=== PATIENT | female | born 1955 ===

== ENCOUNTER 2022-01-18 05:57 | Observation (INO) ==
[2022-01-18] MEDS ORDERED: Buffered Lidocaine 1% SYRIN 1 ml INTRADERM ONE ×2 (06:00→07:15)
[2022-01-18] MEDS ORDERED: Lactated Ringers 1000 ml BAG 1,000 ML IV SCH (06:00)
[2022-01-18] MEDS ORDERED: Dexamethasone IV 4 MG/ML VIAL 1 ml VIAL ONE ×2 (06:20→07:04)
[2022-01-18] MEDS ORDERED: ceFAZolin 2 GM PREMIX 2 GM/50 ML BAG ONE (06:20)
[2022-01-18] MEDS ORDERED: Ondansetron 4 mg VIAL 2 MG/ML 2 ml VIAL ONE ×2 (06:20→07:04)
[2022-01-18] MEDS ORDERED: Heparin 5000 UNITS/ML 1 mL VIAL ONE (06:20)
[2022-01-18] MEDS ORDERED: Scopolamine 1 mg/72hr PATCH ONE (06:20)
[2022-01-18] MEDS ORDERED: ceFAZolin VIAL VIAL ONE ×3 (07:02→12:33)
[2022-01-18] MEDS ORDERED: Bupivacaine 0.25% SDV 30 ML ONE ×3 (07:02→12:33)
[2022-01-18] MEDS ORDERED: Gentamicin ADULT 40 MG/ML VIAL (2 ML VIAL = 80 MG) ONE ×3 (07:02→12:32)
[2022-01-18] MEDS ORDERED: Succinylcholine 200 mg VIAL 20 mg/ml 10 ml VIAL (200 mg) ONE (07:04)
[2022-01-18] MEDS ORDERED: Propofol 10 MG/ML 20 ML BTL ONE (07:04)
[2022-01-18] MEDS ORDERED: Lidocaine 2% PF 5 ML VIAL ONE (07:04)
[2022-01-18] MEDS ORDERED: fentaNYL 100 mcg/2 ml 50 MCG/ML VIAL ONE (07:04)
[2022-01-18] MEDS ORDERED: Povidone Iodine 5% OPTH 30 ML BTL ONE ×2 (07:07→07:08)
[2022-01-18] MEDS ORDERED: Scopolamine 1 mg/72hr PATCH TRANSDERM SCH (07:15)
[2022-01-18] MEDS ORDERED: Naloxone 0.4 mg VIAL 0.4 mg/ml 1 ml VIAL IV PRN (07:39)
[2022-01-18] MEDS ORDERED: Prochlorperazine 5 mg/ml 2 ml VIAL (10 mg) IV PRN (07:39)
[2022-01-18] MEDS ORDERED: HYDROmorphone 1 MG/1 ML SYRINGE IV PRN (07:39)
[2022-01-18] MEDS ORDERED: Phenylephrine IV 10 MG/ML 1 ml VIAL ONE (07:59)
[2022-01-18] MEDS ORDERED: HYDROmorphone 0.5 MG/0.5 ML SYRINGE ONE ×4 (08:10→15:54)
[2022-01-18] MEDS ORDERED: ceFAZolin 1 GM ADVAN 1 GM ADDV.VIAL IVPB ONE (11:39)
[2022-01-18] MEDS ORDERED: Benzocaine/Menthol LOZ PO PRN (12:50)
[2022-01-18] MEDS ORDERED: Acetaminophen IV 1 GM/100ML 1,000 MG/100 ML BAG IV ONE (14:41)
[2022-01-18] MEDS ORDERED: HYDROmorphone 1 MG/1 ML SYRINGE ONE ×2 (16:13→17:57)
[2022-01-18] MEDS: HYDROcodone/ACETAMIN 5/325 mg TAB PO PRN (21:39)
[2022-01-18] MEDS: Heparin 5000 UNITS/ML 1 mL VIAL SUBCUT SCH (21:40)
[2022-01-18] MEDS: ceFAZolin 2 GM in NS PREMIX 2 GM/100 ML BAG IVPB SCH (22:10)
[2022-01-19] MEDS: Morphine 2 MG/ML SYRINGE IV PRN ×2 (01:13→08:24)
[2022-01-19] MEDS: HYDROcodone/ACETAMIN 5/325 mg TAB PO PRN ×3 (05:14→20:02)
[2022-01-19] MEDS: ceFAZolin 2 GM in NS PREMIX 2 GM/100 ML BAG IVPB SCH ×4 (05:17→20:15)
[2022-01-19] MEDS: Heparin 5000 UNITS/ML 1 mL VIAL SUBCUT SCH ×3 (05:20→22:18)
[2022-01-19] MEDS ORDERED: Pneumococcal Vac 23-Polyvalent IM ONE (09:00)
[2022-01-20] MEDS: HYDROcodone/ACETAMIN 5/325 mg TAB PO PRN (03:20)
[2022-01-20] MEDS: ceFAZolin 2 GM in NS PREMIX 2 GM/100 ML BAG IVPB SCH ×2 (06:23→10:51)
[2022-01-20] MEDS: Heparin 5000 UNITS/ML 1 mL VIAL SUBCUT SCH (06:28)
[2022-01-20 11:04] VITALS: BP 125/79
== END 2022-01-20 12:30 | disposition home or self-care (01) ==
LOC: SSU 05:57 → OR 05:57
PROVIDERS: ADMIT Student in an Organized Health Care Education/Training Program; ATTEND Student in an Organized Health Care Education/Training Program